=== PATIENT | male | born 1965 | race Caucasian/White ===

== ENCOUNTER 2017-08-14 17:14 | Emergency (ER) | payer OTHER ==
[2017-08-14] MEDS: KETOROLAC 15 MG INJ IM (19:42)
[2017-08-14] MEDS ORDERED: morphine 4 MG/ML VIAL IV (22:53)
[2017-08-14] MEDS: morphine 10 MG INJ IM (23:08)
[2017-08-14] MEDS: morphine 4 MG/ML VIAL IM (23:12)
== END 2017-08-14 23:40 | disposition home or self-care (01) ==
LOC: E/R 17:14 → FTE 23:40
DX: S82.142A Displaced bicondylar fracture of left tibia, initial encounter for closed fracture (principal); V29.88XA Motorcycle rider (driver) (passenger) injured in other specified transport accidents, initial encounter
CPT/HCPCS: 73562; 73590; 96372; 99284-25